=== PATIENT | male | born 1980 | race Caucasian/White ===

== ENCOUNTER → 2020-12-23 14:48 | Outpatient (BNVA) | payer OTHER, SELFPAY | PROVIDERS: PCP Nurse Practitioner Family; Visit Provider Internal Medicine ==

== ENCOUNTER → 2021-01-31 09:51 | Outpatient (REF) | payer OTHER, SELFPAY | LOC: HO.SL 09:51 | PROVIDERS: PCP Nurse Practitioner Family; Visit Provider Internal Medicine | DX: E66.9 Obesity, unspecified (principal); R06.83 Snoring; G47.33 Obstructive sleep apnea (adult) (pediatric) | CPT/HCPCS: 95806 ==

== ENCOUNTER → 2021-02-17 15:40 | Outpatient (BNVA) | payer OTHER, SELFPAY | PROVIDERS: PCP Nurse Practitioner Family; Visit Provider Internal Medicine ==

== ENCOUNTER 2022-05-30 08:27 | Outpatient (REF) | payer OTHER, SELFPAY ==
--- NOTE | ~2022-05-30 | US_ITS ---
EXAMINATION: US SCROTUM CLINICAL INFORMATION: Benign cyst of testis. COMPARISON: None available. TECHNIQUE: A sonogram of the scrotum was performed assessing england-scale appearance and color Doppler flow. Spectral Doppler analysis of the arterial and venous flow were performed in the testes bilaterally. FINDINGS: RIGHT: Right testicle measures 5.6 x 2.3 x 4.4 cm, volume 29.9 mL. There is anechoic cyst in the right epididymis midpole measuring 0.28 x 0.37 x 0.31 cm. No solid lesions or additional cyst seen. Spectral Doppler analysis of the arterial and venous flow is normal in the right testis. Right epididymal head is normal. There is lobulated anechoic cyst in the body of the right epididymis measuring 0.71 x 0.58 x 0.88 cm. There is a small right hydrocele. No right varicocele is seen. Right epididymal Doppler flow is normal. LEFT: Left testicle measures 5.7 x 2.4 x 3.7 cm, volume 26.6 mL. There is no cyst or solid lesion seen. Spectral Doppler analysis of the arterial and venous flow is normal in the left testis. Left epididymal head is normal except for a small anechoic cyst in the body measuring 1.4 x 1.3 x 1.7 cm and epididymal head cyst measuring 1.4 x 1.3 x 1.7 cm. No left hydrocele or varicocele is seen. Left epididymal Doppler flow is normal. There are bilateral prominent Rete testes. US/US scrotum IMPRESSION: Bilateral epididymal cysts. Right testicular cyst. Bilateral prominent Rete testes. The Doppler exam of testes and epididymides is normal.
== END 2022-05-30 08:28 | disposition home or self-care (01) ==
LOC: HO.HMGCX 08:27
PROVIDERS: PCP Nurse Practitioner Family; Visit Provider Nurse Practitioner Family
DX: N44.2 Benign cyst of testis (principal)
CPT/HCPCS: 76870

== ENCOUNTER 2022-07-05 09:56 | Outpatient (AMB) | payer OTHER, SELFPAY ==
--- NOTE | 2022-07-05 10:08 | A.OFFVIS_ITS ---
Intake Intake Visit Reasons: New patient vasectomy consult Intake Note: New Patient is present Vasectomy Consult Antibiotic Allergy: Penicillin Blood Thinner: None Current Children: 3 Not expecting Allergies penicillin V Allergy (Unknown, Verified 07/27/22 10:36) Unknown HPI HPI Comments History of Present Illness Details Herberth is a 42-year-old male who presents to the office as a new patient evaluation for vasectomy consult. 07/05/22-- The patient reported scrotal lesion that comes and goes to his PCP. The patient has a girl child. States that his is aware regarding the procedure. Vasectomy procedure was discussed at length with the patient. He was informed that vasectomy is a safe, permanent, and effective form of control but there are risks involved. It may involve risk of hematoma, procedure failure which is rare, sperm granuloma which may cause mild pain, and congestion which may cause sense of pressure and resolves after several weeks. The patient was advised that it is necessary to use other types of control methods like condom until we send semen for analysis to make sure there is no more sperm in the semen which is done after two and a half months post vasectomy. Patient would be given antibiotic therapy as an infection prophylaxis before the procedure. Consent regarding the vasectomy consult was obtained. Reviewed and Discussed U/S rescults: --Scrotal US results reviewed--05/30/22-- IMPRESSION: Bilateral epididymal cysts. Right testicular cyst. No testicular masses noted. Plan: Vasectomy procedure discussed to be scheduled. FORMERLY [facility], [facility] Medical History (Updated 07/27/22 @ 10:24 by Elizabeth Hyde RN) HTN (hypertension) IBS (irritable bowel syndrome) Obesity (BMI 30-39.9) SAHRA (obstructive sleep apnea) Snoring Surgical History (Updated 07/27/22 @ 10:35 by Elizabeth Hyde RN) Hx of colonoscopy No pertinent past surgical history Social History Housing: House Are you a primary adult day care worker to a significant other at home: No Patient Tobacco Use Status: Former Tobacco user Quit Date: 20 yrs ago Tobacco use type: Cigarette Years Smoked: 20 years ago e-Cigarette/Vaping Use: Never Used Second Hand Smoke Exposure: No Have you been hit, kicked, punched, or otherwise hurt by someone within the past year? If so, by whom?: No Are you DNR?: No Advance Directives: No Advance Directives Information Provided: No Advance Directives on File: No Recently lost weight without trying: No Eating poorly because of decreased appetite: No Nutrition Risks: No Nutritional Risk service: No Current occupational status: employed Current occupation: [employer] Current occupational exposures/hazards: No Cognitive needs: No Hearing needs: No Vision needs: Yes Review of Systems Const All systems reviewed & are unremarkable except as noted in HPI and below Reports no additional complaints Eyes Reports no additional complaints ENT Reports no additional complaints Card Denies dyspnea Resp Denies cough and Denies dyspnea GI Reports no additional complaints Musc Reports no additional complaints Skin/Breast Denies rash and Denies unusual bruising Neuro Reports no additional complaints Psych Reports no additional complaints Endo Reports no additional complaints Raul/Lymph Reports no additional complaints Aller/Immun Reports no additional complaints Physical Exam Const General: healthy appearing, no acute distress and well developed Orientation/consciousness: patient oriented x3 HEENT Head: Yes normocephalic and Yes atraumatic Eyes Conjunctivae: conjunctivae normal Neck Neck: Yes normal visual inspection Chest Chest palpation & inspection: normal inspection of the chest Resp Effort & Inspection: normal respiratory effort Cardio Rate: regular rate GI Inspection: Yes normal to inspection Skin General skin exam: no rashes or lesions noted Neuro General: patient oriented x3 Extrem General: No pedal edema Psych Appearance: grossly normal Affect: normal affect Results Reviewed Results Reviewed: Date of Service: 05/30/22 EXAMINATION: US SCROTUM CLINICAL INFORMATION: Benign cyst of testis. COMPARISON: None available. TECHNIQUE: A sonogram of the scrotum was performed assessing england-scale appearance and color Doppler flow. Spectral Doppler analysis of the arterial and venous flow were performed in the testes bilaterally. FINDINGS: RIGHT: Right testicle measures 5.6 x 2.3 x 4.4 cm, volume 29.9 mL. There is anechoic cyst in the right epididymis midpole measuring 0.28 x 0.37 x 0.31 cm. No solid lesions or additional cyst seen. Spectral Doppler analysis of the arterial and venous flow is normal in the right testis. Right epididymal head is normal. There is lobulated anechoic cyst in the body of the right epididymis measuring 0.71 x 0.58 x 0.88 cm. There is a small right hydrocele. No right varicocele is seen. Right epididymal Doppler flow is normal. LEFT: Left testicle measures 5.7 x 2.4 x 3.7 cm, volume 26.6 mL. There is no cyst or solid lesion seen. Spectral Doppler analysis of the arterial and venous flow is normal in the left testis. Left epididymal head is normal except for a small anechoic cyst in the body measuring 1.4 x 1.3 x 1.7 cm and epididymal head cyst measuring 1.4 x 1.3 x 1.7 cm. No left hydrocele or varicocele is seen. Left epididymal Doppler flow is normal. There are bilateral prominent Rete testes. IMPRESSION: Bilateral epididymal cysts. ? Right testicular cyst. ? Bilateral prominent Rete testes. ? The Doppler exam of testes and epididymides is normal. Assessment & Plan Assessment & Plan (1) Vasectomy evaluation: Code(s): Z30.09 - Encounter for other general counseling and advice on contraception (2) Testicular cyst: Code(s): N44.2 - Benign cyst of testis Plan Vasectomy procedure discussed to be scheduled. Patient Instructions: The patient had an opportunity to ask questions regarding treatment plan. All questions were answered. Imaging, Laboratory studies and physical exam results were discussed and reviewed in detail. No major barriers to understanding were identified. The patient expressed understanding and agreement with the above treatment plan. The patient is aware they should contact our office by phone for worsening of their current condition or the appearance of new symptoms. Compliance is encouraged with any medications and followup testing that is ordered. It is a privilege to be allowed the opportunity to participate in the urologic care of your patient. If you have any questions or concerns regarding treatment for the above conditions please do not hesitate to contact me. The office telephone contact is [phone]. This note is constructed in part using voice recognition software. While every effort has been made to ensure accuracy laboratory development technician errors may have been included. Yours sincerely, Griselda Benavides MD Coding Level of Care Code New Pt Level 4 (46937) Diagnoses Vasectomy evaluation Z30.09 Testicular cyst N44.2
== END 2022-07-05 10:36 | disposition home or self-care (01) ==
LOC: HO.HUSH 09:56
PROVIDERS: PCP Nurse Practitioner Family; Visit Provider Urology
DX: Z30.09 Encounter for other general counseling and advice on contraception (principal); N44.2 Benign cyst of testis
CPT/HCPCS: 99204

== ENCOUNTER → 2022-07-05 09:56 | Outpatient (BNVA) | payer OTHER, SELFPAY | PROVIDERS: PCP Nurse Practitioner Family; Visit Provider Urology ==

== ENCOUNTER 2024-05-01 08:49 | Outpatient (AMB) | payer OTHER, SELFPAY ==
[2024-05-01 08:53] VITALS: BP 128/78; PULSE 80; TEMP 36.6; O2SAT 98; BMI 30.7
--- NOTE | 2024-05-01 08:53 | A.OFFPC_ITS ---
Vital Signs 05/01/24 08:53 Height 5 ft 11 in Weight 220 lb BMI 30.7 BP 128/78 Blood Pressure Location Lt brachial Position Sitting Pulse 80 Pulse Source Pulse Oximeter Temp 97.8 F Temp Source Oral Pulse Oximetry (%) 98 Intake Visit Reasons: follow up hemorrhoids Lion Tamer Required: No Accompanied by: Self / Same As Patient Allergies penicillin V Allergy (Unknown, Verified 05/01/24 09:50) Unknown Medication List - Last Reconciled 05/01/24 by GLENNY Chavez- albuterol sulfate 90 mcg/actuation 2 puffs inhalation Q6H PRN 90 days hydrocortisone 2.5% (Anusol-HC) 1 appl SD BID-QID PRN ketoconazole 2% appl topical valsartan 320 mg PO DAILY 90 days Tobacco use date assessed: 05/01/24 Dental Screening Dental Screen Date: 05/01/24 Did you have a dental visit in the last 12 months?: Yes Did you have a dental problem in the last 6 months where you did not have access to dental care?: No Was dental information given to patient?: Patient has dentist HPI follow up hemorrhoids HPI Details Chief Complaint The patient reports noticing a bump near his anus a few weeks ago, without any associated bleeding. History of Present Illness The patient is a 43-year-old male presenting with concerns related to an external hemorrhoid. He noted an anal bump a few weeks ago, which was initially hard and tender but has since improved in tenderness. He denies associated bleeding or itching but reports intermittent diarrhea and a general tendency towards constipation. Regarding his family history, there is a significant prevalence of pancreatic carcinoma, as both his father and paternal aunt were affected, with his father passing at 59 following diagnosis at age 57. A previous referral to genetics and testing with CA-19-9 had been made, but further genetic consultation was not pursued by the patient, apparently did not get a call about this previous referral ? HTN: stable Social History Health Maintenance - Previous referral to genetics for fami ly history of pancreatic carcinoma noted. - CA-19-9 test previously ordered. Review of Systems - Gastrointestinal: Reports intermittent diarrhea and constipation; denies blood in stool or anal itching. - Respiratory: Denies shortness of breat h. - Neurological: Denies dizziness or head aches. - Cardiovascular: Denies chest pain. Physical Exam General: Cooperative, healthy appearing, comfortable, no acute distress and well developed Orientation: Patient oriented x3 Limitations: No limitations Head: Normal to inspection Ears: Hearing grossly normal bilaterally Nose: Normal external nose present Face and sinus: Normal facial exam Eyes: Appearance normal, both eyes and all related structures Neck: Normal visual inspection and Yes full ROM Respiratory: Normal respiratory effort and able to speak in complete sentences. Clear to auscultation bilaterally Cardiovascular: Regular rate and rhythm. Normal S1 and S2 GI: External hemorrhoid noted at the 5:00 position, appears to be healing well. Normal to inspection. Soft to palpation and nontender Skin: No rashes or lesions noted Neuro: Patient oriented x3 Extremities: Normal to inspection Results Plan I have recommended a topical cream for the management of the external hemorrhoid and instructed the patient to notify me if symptoms change or worsen. A CA-19-9 test will be conducted, and an MRI of the abdomen has been ordered to provide further investigation due to familial pancreatic cancer risk. The patient will be re-referred to genetics for a comprehensive evaluation, and follow-up care will be discussed based on forthcoming results. Discussion Notes During our discussion, I explained the diagnosis of an external hemorrhoid and the typical management approach with topical treatments for symptom relief and healing facilitation. I emphasized the importance of reporting any changes or concerns immediately. We reviewed his significant family history of pancreatic carcinoma, and I conveyed the necessity of completing genetic counseling and testing for better understanding of his risk. Consent was obtained for performing a CA-19-9 test and scheduling an MRI of the abdomen, with the potential benefits of early detection and routine monitoring highlighted. Follow-up and further discussions will occur depending on the outcomes of these investigations. Patient Instructions - Apply the prescribed cream as directed to the affected area. - Monitor the hemorrhoid for any changes or worsening. - Seek immediate care if experiencing in creased pain, bleeding, or discomfort. - Complete blood work and attend an MRI appointment as scheduled. - Expect referral details for genetic co unseling. FORMERLY [facility], [facility] Medical History Irritable bowel syndrome with diarrhea HTN (hypertension) IBS (irritable bowel syndrome) Snoring SAHRA (obstructive sleep apnea) Obesity (BMI 30-39.9) Surgical History Hx of colonoscopy No pertinent past surgical history Social History Housing: House Are you a primary home day care provider to a significant other at home: No Patient Tobacco Use Status: Former Tobacco user Tobacco use type: Cigarette Years Smoked: 20 years ago e-Cigarette/Vaping Use: Never Used Second Hand Smoke Exposure: No service: No Current occupational status: employed Current occupation: [employer] Current occupational exposures/hazards: No Cognitive needs: No Hearing needs: No Vision needs: Yes Questionnaire PHQ-9 Over the last 2 weeks, how often have you been bothered by any of the following problems? 1. Little interest or pleasure in doing things: not at all 2. Feeling down, depressed, or hopeless: not at all 3. Trouble falling or staying asleep, or sleeping too much: not at all 4. Feeling tired or having little energy: not at all 5. Poor appetite or overeating: not at all 6. Feeling bad about yourself - or that you are a failure or have let yourself or your family down: not at all 7. Trouble concentrating on things, such as reading the newspaper or watching television: not at all 8. Moving or speaking so slowly that other people could have noticed. Or the opposite - being so fidgety or restless that you have been moving around a lot more than usual: not at all 9. Thoughts that you would be better off or of hurting yourself in some way: not at all Total score: 0 Depression Screening Interpretation: Negative Depression Screening Done: Yes 45489 - PHQ-9 Billing: Yes Source: Developed by Drs. Desean Collins, Dacia Kaur, Mino Tsai and colleagues, with an educational tereso from [employer]. Thrive Questionnaire Date Thrive assessed: 05/01/24 I am a: Patient What is your living situation today?: I have a steady place to live Within the past 12 months, did the food you bought not last and you didn't have the money to get more?: Never true Within the past 12 months, did you worry whether your food would run out before you got money to buy more?: Never true Do you have trouble paying for medicines?: No Do you have trouble getting transportation to medical appointments?: No Do you have trouble paying your heating and electricity bill?: No Do you have trouble taking care of your child, family member or friend?: No Do you have trouble with day-to-day activities such as bathing, preparing meals, shopping, managing finances, etc.?: No Are you currently unemployed and looking for a job?: No Are you interested in more education?: No Please select the resources that you would like help with: None Currently or been in a relationship where the following occur: No concerns reported THRIVE Score: 0 AUDIT C Alcohol Use Questionnaire (AUDIT-C) 1. How often do you have a drink containing alcohol?: Never 3. How often do you have six or more drinks on one occasion?: Never Total Score: 0 Score Reviewed/Action Taken: Yes SOL-7 AMB Questionnaire SOL-7 Date SOL - 7 assessed: 05/01/24 Feeling nervous, anxious, or on edge: 0 = Not at all Not being able to stop or control worryin = Not at all Worrying too much about different things: 0 = Not at all Trouble relaxin = Not at all Being so restless that it is hard to sit still: 0 = Not at all Becoming easily annoyed or irritable: 0 = Not at all Feeling afraid as if something awful might happen: 0 = Not at all Total SOL-7 score (0-4 normal; 5-9 mild; 10-14 moderate; 15-21 severe): 0 Source: Developed by Drs. Desean Collins, Dacia Kaur, Mino Tsai and colleagues, with an educational tereso from [employer]. SOL-7 Assessment Billing SOL-7 Assessment Tool: SOL-7 Assessment 03654 Physical exam (Primary Care) Vital Signs: Last Vital Signs Temp 97.8 F 05/01/24 08:53 Pulse 80 05/01/24 08:53 BP 128/78 05/01/24 08:53 Pulse Ox 98 05/01/24 08:53 BMI result Body Mass Index 30.7 Tobacco/Smoking Status: Tobacco use Status Tobacco use date assessed 05/01/24 05/01/24 08:54 Patient Tobacco Use Status Former Tobacco user 05/01/24 08:54 Tobacco use type Cigarette 05/01/24 08:54 e-Cigarette/Vaping Use Never Used 05/01/24 08:54 PHQ-9: PHQ-9 Score PHQ-9: Total score 0 05/01/24 09:00 Depression Screening Interpretation: Negative Thrive Assessment: Date of Thrive Assessment Date Thrive assessed 05/01/24 05/01/24 08:55 Currently or been in a relationship where the following occur: No concerns reported Coding Level of Care Code Est Pt Level 3 (36293) Diagnoses Family history of pancreatic cancer Z80.0 HTN (hypertension) I10 External hemorrhoid K64.4 Additional Codes SOL-7 Assessment Billing - SOL-7 Assessment Tool: SOL-7 Assessment 48625 ([id number]) PHQ-9 - 22085 - PHQ-9 Billing: Yes ([id number]) Assessment & Plan Assessment & Plan (1) Family history of pancreatic cancer: Comment: father at age 59y, paternal aunt from Pancreatic cancer Code(s): Z80.0 - Family history of malignant neoplasm of digestive organs Category: Medical (2) HTN (hypertension): Code(s): I10 - Essential (primary) hypertension Category: Medical (3) External hemorrhoid: Code(s): K64.4 - Residual hemorrhoidal skin tags Category: Medical Plan . Orders: Orders MR abdomen wo/w con Today Z80.0 - Family history of malignant neoplasm of digestive organs Referrals Genetics Referral Z80.0 - Family history of malignant neoplasm of digestive organs Medications: New hydrocortisone 2.5% (Anusol-HC) 1 appl SD BID-QID PRN 30 grams 0RF hemorrhoids
--- OUTSIDE RECORDS SUMMARY | 2024-05-01 09:15 | XMS_ITS | Clinical Summary ---
Author Organization [address] Address [address] [place] [address] Phone Care Team Providers Care Sr. Manager Marketing Name Role Phone Jb Cooley NP Primary Care Provider Allergies Active Allergy Reactions Criticality Noted Date Comments Penicillin 02/07/2024 Medications valsartan (DIOVAN) 320 mg tablet 12/10/2023 Activ e Encounters Date Type Department Care Team Description 02/08/2024 2:00 PM EST Office Visit Gastroenterology - [address] [place] [id number] Ginette Dsouza MD Irritable bowel syndrome with diarrhea (Primary Dx) from Last 3 Months Surgical History Surgery Date Site/Laterality Comments COLONOSCOPY W/ BIOPSIES 03/20/2022 nl - nl bx FLEXIBLE SIGMOIDOSCOPY 05/11/2017 Dr. Davis- homero bx ESOPHAGOGASTRODUODENOSCOPY 05/11/2017 Dr. Davis -homero esophgaus and stomach bx Medical History Medical History Date Comments IBS (irritable bowel syndrome) GERD (gastroesophageal reflux disease) HTN (hypertension) Seasonal allergies Family History Medical History Relation Name Comments Colon polyps Father Relation Name Status Comments Father Social History Tobacco Use Types Packs/Day Years Used Date Smoking Tobacco: Never Smokeless Tobacco: Never Tobacco Cessation:Counseling Given: Not Answered Alcohol Use Standard Drinks/Week Comments Not Currently 0 (1 standard drink = 0.6 oz pur e alcohol) Sex and Gender Information Value Date Recorded Sex Assigned at Not on file Legal Sex Male 11:15 AM EDT Gender Identity Not on file Sexual Orientation Not on file Obstetrics History Last Filed Vital Signs Vital Sign Reading Time Taken Comments Blood Pressure - - Pulse - - Temperature - - Respiratory Rate - - Oxygen Saturation - - Inhaled Oxygen Concentration - - Weight 104 kg (230 lb) 02/08/2024 1:52 PM EST Height 180.3 cm (5' 11 ) 02/08/2024 1:52 PM EST Body Mass Index 32.08 02/08/2024 1:52 PM EST Plan of Treatment Health Maintenance Due Date Last Done Comments Hepatitis B Vaccines (1 of 3 - 19+ 3-dose series) 2000 COVID-19 Vaccine (2023- season) 2023 12/20/2020, 04/27/2020 Cholesterol Screening (Lipid Panel) 12/09/2023 Depression Screening 12/09/2023 HIV Screening 12/09/2023 Hepatitis C Screening 12/09/2023 Social Influencers of Health Screening 12/09/2023 DTaP,Tdap,and Td Vaccines (2 - Td or Tdap) 10/10/2030 10/10/2020 Influenza Vaccine Completed 01/29/2024, , 12/05/2021, Additional history exists HIB Vaccines Aged Out No longer eligi ble based on patient's age to complete this topic HPV Vaccines Aged Out No longer eligi ble based on patient's age to complete this topic Hepatitis A Vaccines Aged Out No long er eligible based on patient's age to complete this topic IPV Vaccines Aged Out No longer eligi ble based on patient's age to complete this topic MMR Vaccines Aged Out No longer eligi ble based on patient's age to complete this topic Meningococcal ACWY Vaccine Aged Out N o longer eligible based on patient's age to complete this topic Meningococcal B Vacine Aged Out No lo nger eligible based on patient's age to complete this topic Pneumococcal Vaccine: Pediatrics (0 to 5 Years) and At-Risk Patients (6 to 64 Years) Aged Out No longer eligible based on patient's age to complete this topic RSV Immunization Patients Under 20 months Aged Out No longer eligible based on patient's age to complete this topic Varicella Vaccines Aged Out No longer eligible based on patient's age to complete this topic Procedures Procedure Name Priority Date/Time Associated Diagnosis Comments COLONOSCOPY Routine 02/11/2024 1:48 PM EST from Last 3 Months Results * COLONOSCOPY (02/11/2024 1:48 PM EST) Anatomical Region Laterality Modality Endoscopy us Historical Provider MD CAN~PROCEDURE ORDERABLES F inal Result from Last 3 Months Insurance [facility] Care Teams Sr. Manager Marketing Relationship Specialty Start Date End Date Jb Cooley NP [address] [facility] PCP - General Family Medicine 01/25/24
== END 2024-05-01 10:05 | disposition home or self-care (01) ==
LOC: HO.HMCC 08:50
PROVIDERS: PCP Nurse Practitioner Family; Visit Provider Nurse Practitioner Family
DX: Z80.0 Family history of malignant neoplasm of digestive organs (principal); I10 Essential (primary) hypertension; K64.4 Residual hemorrhoidal skin tags

== ENCOUNTER 2024-05-01 08:49 | Outpatient (REF) | payer OTHER, SELFPAY ==
[2024-05-01 13:13] LABS: MANUAL DIFF FLAG NO
[2024-05-01 13:25] LABS: Basophils Percent Auto 0.4 % (0-2); Eosinophils Absolute Auto 0.1 X10*3/uL (0.0-0.4); Eosinophils Percent Auto 1.8 % (0-4); Hematocrit 45.8 % (42.0-52.0); Hemoglobin 16.4 g/dl (14.0-18.0); Imm Gran Abs Auto 0.02 X10*3/uL (0.00-0.03); Imm Gran Pct Auto 0.4 % (0.0-0.4); Lymphocytes Absolute Auto 1.6 X10*3/uL (1.2-4.9); Lymphocytes Percent Auto 27.3 % (20-40); Mean Corpuscular HGB Conc 35.8 g/dl (31.0-36.0); Mean Corpuscular Hemoglobin 32.1 pg (27.0-33.0); Mean Corpuscular Volume 89.6 fL (80.0-98.0); Mean Platelet Volume 9.3 fL (9.4-12.4); Monocytes Absolute Auto 0.6 X10*3/uL (0.1-1.2); Monocytes Percent Auto 9.9 % (2-11); Neutrophils Absolute Auto 3.4 x10*3/uL (2.0-8.3); Neutrophils Percent Auto 60.2 % (45-73); Platelet Count 232 X10*3/uL (160-400); Red Blood Count 5.11 X10*6/uL (4.60-5.80); Red Cell Distribution Width 11.9 % (11.0-16.0); White Blood Count 5.7 X10*3/uL (4.8-10.8)
[2024-05-01 13:53] LABS: Appearance Urine Clear; Color Urine Yellow; Glucose Urine UA Negative (Negative); Leukocyte Esterase Urine Negative (Negative); Nitrite Urine Negative (Negative); PH 8.5 (5.0-9.0); Urine Blood Negative (Negative); Urine Ketones Negative (Negative); Urine Protein Negative (Neg-Trace)
[2024-05-01 14:06] LABS: Alanine Aminotransferase 74 U/L (0-40); Albumin Level 4.5 g/dL (3.5-5.0); Alkaline Phosphatase 73 U/L (39-117); Anion Gap 12 (12-20); Aspartate Amino Transferase 36 U/L (5-37); Blood Urea Nitrogen 27 mg/dL (9-16); Calcium 9.7 mg/dL (8.4-10.2); Carbon Dioxide 26 mmol/L (22-29); Chloride 104 mmol/L (96-108); Cholesterol 243 mg/dL (<200); Estimated Glomerular Filt Rate > 60; Glucose Fasting 97 mg/dL (60-99); HDL Cholesterol 44 mg/dL (>40); LDL Cholesterol Calculated 173 mg/dL (<100); Potassium 4.9 mmol/L (3.3-5.1); Sodium 137 mmol/L (135-145); Total Protein 8.1 g/dL (6.5-8.0); Triglycerides 134 mg/dL (<150)
[2024-05-01 14:09] LABS: TSH reflex Free T4 0.88 uIU/mL (0.32-4.0)
[2024-05-02 11:58] LABS: Carbohydrate Antigen 19-9 6 U/mL (<34)
== END 2024-05-01 08:50 | disposition home or self-care (01) ==
LOC: HO.HMGCLDS 08:49
PROVIDERS: PCP Nurse Practitioner Family; Visit Provider Nurse Practitioner Family
DX: I10 Essential (primary) hypertension (principal); K64.4 Residual hemorrhoidal skin tags; Z80.0 Family history of malignant neoplasm of digestive organs; Z00.00 Encounter for general adult medical examination without abnormal findings; R74.8 Abnormal levels of other serum enzymes
CPT/HCPCS: 36415; 80053; 80061; 81003; 84443; 85025; 86301; 96127

== ENCOUNTER 2024-05-14 13:21 | Outpatient (REF) | payer OTHER, SELFPAY ==
--- NOTE | ~2024-05-14 | MR_ITS ---
EXAMINATION: MRI Abdomen without and with contrast HISTORY: Z80.0 - Family history of malignant neoplasm of digestive organs (pancreas) COMPARISON: None TECHNIQUE: Axial in and out of phase T1-weighted gradient echo, axial diffusion weighted, and axial and coronal HASTE T2 with fat saturation images were obtained through the abdomen. Subsequently, fat suppressed axial and coronal T1-weighted images were obtained after the intravenous administration of 10 mL Gadavist. FINDINGS: There is no significant signal loss within the liver on opposed phase images to suggest steatosis. There is no enhancing liver mass. The hepatic and portal veins are patent. There is no intra or extrahepatic biliary ductal dilatation. The gallbladder is unremarkable. The spleen and adrenals are unremarkable. There is normal enhancement of the pancreas. No mass is identified. The pancreatic duct is normal in caliber. There are no peripancreatic inflammatory changes. There is a subcentimeter cyst at the lower pole of the right kidney. The left kidney is unremarkable. There is no hydronephrosis. No retroperitoneal lymphadenopathy or ascites is identified in the upper abdomen. The visualized bones demonstrate normal marrow signal intensity. MR/MR abdomen wo/w con IMPRESSION: Subcentimeter right renal cyst. Otherwise unremarkable MRI of the abdomen without and with contrast. No evidence of a pancreatic mass. Electronically signed by: Desean Prado MD 05/15/2024 07:50 AM EDT
[2024-05-14] MEDS: gadobutroL 10 ML VIAL IVPUSH (14:55)
--- OUTSIDE RECORDS SUMMARY | 2024-05-14 15:58 | XMS_ITS | Clinical Summary ---
Author Organization [facility] [address] [facility] Address [address] [place] [address] Phone Care Team Providers Care Traffic Supervisor Name Role Phone Jb Cooley NP Primary Care Provider Allergies Active Allergy Reactions Criticality Noted Date Comments Penicillin 02/07/2024 Medications valsartan (DIOVAN) 320 mg tablet 12/10/2023 Activ e Surgical History Surgery Date Site/Laterality Comments COLONOSCOPY [...] - 19+ 3-dose series) 2000 COVID-19 Vaccine (3 2023-25 season) 2023 12/20/2020, 04/27/2020 Cholesterol Screening (Lipid [...] on patient's age to complete this topic Insurance [facility] Care Teams Traffic Supervisor Relationship Specialty Start Date End Date Jb Cooley NP [address] [facility] DONNA Simons PCP - General Family Medicine 01/25/24
== END 2024-05-14 13:22 | disposition home or self-care (01) ==
LOC: HO.MRI 13:21
PROVIDERS: PCP Nurse Practitioner Family; Visit Provider Nurse Practitioner Family
DX: Z13.6 Encounter for screening for cardiovascular disorders (principal); Z80.0 Family history of malignant neoplasm of digestive organs
CPT/HCPCS: 74183; A9585

== ENCOUNTER → 2024-05-14 13:31 | Outpatient (BNV) | payer OTHER, SELFPAY | PROVIDERS: PCP Nurse Practitioner Family; Visit Provider Radiology Diagnostic Radiology | DX: N28.1 Cyst of kidney, acquired (principal) | CPT/HCPCS: 74183 ==

== ENCOUNTER 2024-08-28 08:40 | Outpatient (REF) | payer OTHER, SELFPAY ==
--- NOTE | ~2024-08-28 | US_ITS ---
CLINICAL HISTORY: ELEVATED LIVER ENZYMES US abdomen complete Comparison: MR/WA/SR - MR ABDOMEN WITHOUT THEN WITH IV CONTRAST - 05/14/24 13:29 EDT Findings: The pancreas is normal. The visualized aorta and inferior vena cava are normal caliber. The liver is normal in size, right lobe length is 16.5 cm. Normal in echogenicity, no discrete lesion is visualized in the imaged liver. No intrahepatic bile duct dilatation. The common duct is 3 mm in diameter. Multiple punctate echogenic foci floating in the gallbladder toward the neck, gallbladder is otherwise normal, negative sonographic Martinez's sign. The main portal vein is patent with antegrade flow. The right kidney is normal, 11.6 cm in length. The left kidney is normal, 12.0 cm in length. The spleen is mildly enlarged, 13.4 cm in length, no splenic lesion is seen. No free fluid in the abdomen. Impression: 1. Punctate echogenic foci floating in the gallbladder, likely small amount of sludge or thick bile, no acute inflammation. 2. Mild splenomegaly. This document has been electronically signed by: Katja Bridges MD on 08/28/2024 17:16:40
--- OUTSIDE RECORDS SUMMARY | 2024-08-28 08:48 | XMS_ITS | Clinical Summary ---
Author Organization [address] [place] Address [address] [place] [phone] Phone Care Team Providers Care Cloak Room Attendant Name Role Phone Jb Cooley NP Primary Care Provider Allergies Active Allergy Reactions Criticality Noted Date Comments Penicillin 02/07/2024 Medications valsartan (DIOVAN) 320 mg tablet 12/10/2023 Active albuterol HFA (PROAIR HFA ; PROVENTIL HFA ; VENTOLIN HFA) 90 mcg/actuation inhaler Inhale 2 puffs by mouth Every 4 hours as needed. Active omeprazole (PriLOSEC) [address] capsuleIndicati ons:Globus sensation Take 1 capsule (20 mg total) by mouth 2 (two) times a day. Do not crush or chew. 180 each 1 08/14/2024 Active Encounters Date Type Department Care Team Description 08/14/2024 3:00 PM EDT Office Visit Gastroenterology - [address] [place] [phone] Octavio Massey PA Globus sensation (Primary Dx) from Last 3 Months Immunizations Name Administration Dates Next Due Influenza Quadravalent, MDCK , 0.5ml, preservative free (Flucelvax) 6mo and older 02/16/2023 Influenza Quadrivalent, 0.5m l, preservative free (Fluarix; FluLaval; Fluzone) ages 6mo and older (Afluria) 3yo and older 12/05/2021,10/10/2020,11/27/2019 Influenza Quadrivalent, with preservative (Fluzone; Afluria) 6mo and older 11/12/2017,01/12/2017 Influenza trivalent, MDCK, 0 .5mL, preservative free (Flucelvax) 6mo and older 01/29/2024 Tdap Tetanus diptheria acell ular pertussis (Boostrix; Adacel) 7yo and older 10/10/2020 Surgical History Surgery Date Site/Laterality Comments COLONOSCOPY [...] - Inhaled Oxygen Concentration - - Weight 98.4 kg (217 lb) 08/14/2024 2:59 PM EDT Height 180.3 cm (5' 11 ) 08/14/2024 2:59 PM EDT Body Mass Index 30.27 08/14/2024 2:59 PM EDT Plan of Treatment Upcoming Encounters Date Type Department Care Team (Late st Contact Info) Description 09/30/2024 10:00 AM EDT Appointment [facility] Xray [address] [place] [phone] Health Maintenance Due Date Last Done Comments Hepatitis B Vaccines (1 of 3 - 19+ 3-dose series) 2000 COVID-19 Vaccine ( season) 2023 12/20/2020, 04/27/2020, 04/05/2020 Cholesterol Screening (Lipid Panel) 12/09/2023 Depression Screening 12/09/2023 HIV Screening 12/09/2023 Hepatitis C Screening 12/09/2023 Social Influencers of Health Screening 12/09/2023 Influenza Vaccine (#1) 2024 4, 02/16/2023, 12/05/2021, Additional history exists DTaP,Tdap,and Td Vaccines (2 - Td or Tdap) 10/10/2030 10/10/2020 HIB Vaccines Aged Out No longer eligi [...] age to complete this topic Meningococcal B Vaccine Aged Out No l onger eligible based on patient's age to complete this topic Pneumococcal Vaccine: Pediatrics (0 to 5 Years) and At-Risk Patients (6 to 49 Years) Aged Out No longer eligible based on patient's age to complete this topic RSV Immunization Patients Under 20 months Aged Out No longer eligible based on patient's age to complete this topic Varicella Vaccines Aged Out No longer eligible based on patient's age to complete this topic Insurance [facility] Care Teams Cloak Room Attendant Relationship Specialty Start Date End Date Jb Cooley NP [address] [facility] Kristyn [place] PCP - General Family Medicine 01/25/24
== END 2024-08-28 08:41 | disposition home or self-care (01) ==
LOC: HO.HMGCX 08:40
PROVIDERS: PCP Nurse Practitioner Family; Visit Provider Nurse Practitioner Family
DX: R74.8 Abnormal levels of other serum enzymes (principal)
CPT/HCPCS: 76700

== ENCOUNTER → 2024-08-28 08:45 | Outpatient (BNV) | payer OTHER, SELFPAY | PROVIDERS: PCP Nurse Practitioner Family; Visit Provider Radiology Diagnostic Radiology | DX: R74.01 Elevation of levels of liver transaminase levels (principal) | CPT/HCPCS: 76700 ==

== ENCOUNTER 2024-12-09 10:19 | Outpatient (REF) | payer OTHER, SELFPAY ==
--- NOTE | ~2024-12-09 | US_ITS ---
CLINICAL HISTORY: R16.1 - Splenomegaly, not elsewhere classified hx of fam panc ca US abdomen complete Comparison: US - US ABDOMEN COMPLETE - 08/28/24 08:53 EDT Findings: The visualized pancreas is normal, the uncinate process and distal tail are not seen. The visualized aorta and inferior vena cava are normal caliber. The liver is mildly enlarged, right lobe length is 18.4 cm. Normal in echogenicity, no discrete lesion is visualized in the imaged liver. No intrahepatic bile duct dilatation. The common duct is 2 mm in diameter. 2 mm and 3 mm gallbladder polyps, not seen before, otherwise gallbladder is normal. Negative sonographic Martinez sign. The main portal vein is patent with antegrade flow. The right kidney demonstrates 7 mm simple cyst at the interpolar region, not seen before, otherwise normal, 11.5 cm in length. The left kidney is normal, 12.0 cm in length. The spleen is mildly enlarged, 13.2 cm in length, previously 13.4 cm, no splenic lesion is seen. No free fluid in the abdomen. Impression: 1. Mild hepatosplenomegaly. 2. 2-3 mm gallbladder polyps. This document has been electronically signed by: Katja Bridges MD on 12/09/2024 16:54:31
--- OUTSIDE RECORDS SUMMARY | 2024-12-09 12:38 | XMS_ITS | Clinical Summary ---
Author Organization [facility] [address] [facility] Address [address] [place] [address] Phone Care Team Providers Care Casting Machine Operator Name Role Phone Jb Cooley NP Primary Care Provider Allergies Active Allergy Reactions Criticality Noted Date Comments Penicillin 02/07/2024 Medications valsartan (DIOVAN) 320 mg tablet 12/10/2023 Active albuterol HFA (PROAIR HFA ; PROVENTIL HFA ; VENTOLIN HFA) 90 mcg/actuation inhaler Inhale 2 puffs by mouth Every 4 hours as needed. Active omeprazole (PriLOSEC) [address] capsuleIndicatio ns:Globus sensation Take 1 capsule (20 mg total) by mouth 2 (two) times a day. Do not crush or chew. 180 each 1 08/14/2024 02/11/20 25 Active omeprazole (PriLOSEC) [address] capsuleIndicatio ns:Globus sensation,Gastro esophageal reflux disease without esophagitis Take 1 capsule (40 mg total) by mouth 2 (two) times a day. Do not crush or chew. 180 each 3 10/10/2024 10/11/19 26 Active Encounters Date Type Department Care Team Description 11/19/2024 Telephone Gastroenterology - [address] [phone] Ginette Dsouza MD 10/08/2024 Telephone Gastroenterology - [address] [phone] Shaye Cochran MA 09/30/2024 9:31 AM EDT - 09/30/2024 11:59 PM EDT Hospital Encounter [facility] Xray [address] [place] [address] Globus sensation Discharge Disposition: Home or Self Care from Last 3 Months Immunizations Immunization Administration Dates Next Due Influenza Quadravalent, MDCK [...] 08/14/2024 2:59 PM EDT Plan of Treatment Health Maintenance Due Date Last Done Comments Hepatitis B Vaccines (1 of 3 - 19+ 3-dose series) 2000 HPV Vaccines (1 - 3-dose SCDM series) 2008 Cholesterol Screening (Lipid Panel) 12/09/2023 HIV Screening 12/09/2023 Hepatitis C Screening 12/09/2023 Social Influencers of Health Screening 12/09/2023 Depression Screening 02/13/2024 COVID-19 Vaccine ( season) 2024 12/20/2020, 04/27/2020, 04/05/2020 Influenza Vaccine (#1) 2024 , 02/16/2023, 12/05/2021, Additional history exists DTaP,Tdap,and Td Vaccines (2 - Td or Tdap) 10/10/2030 10/10/2020 RSV Immunization Adult Patients (1 - 1-dose 75+ series) 2056 HIB Vaccines Aged Out No longer eligi [...] Procedure Name Priority Date/Time Associated Diagnosis Comments XR ESOPHAGRAM Routine 09/30/2024 10:13 AM EDT Globus sensation from Last 3 Months Results * XR Esophagram (09/30/2024 10:13 AM EDT) Anatomical Region Laterality Modality Head and Neck Radiographic Cathryn ging 09/30/2024 10:5 1 AM EDT Impressions 09/30/2024 12:31 PM EDT Normal double contrast esophagram exam. -------- FINAL REPORT -------- Dictated By: Marcia Veronica Dictated Date: 09/30/2024 10:51 ET Assigned Physician: Hay Lynch Reviewed and Electronically Signed By: Hay Lynch Signed Date: 09/30/2024 12:31 ET Workstation ID: [id number] Transcribed By: Self Edit Transcribed Date: 09/30/2024 10:53 ET Resident/PA/LABORER/GRADE CHECK: Marcia Veronica Narrative 09/30/2024 12:31 PM EDT FINDINGS: Double contrast esophagram performed. 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 Lungs are clear bilaterally. Costophrenic angles are sharp. 1 view lateral soft tissue neck demonstrates no prevertebral soft tissue masses. Airway is widely patent. Osseous structures are overall unremarkable. Effervescent crystals were administered orally. Thick and thin barium were administered orally under fluoroscopic control. Pharyngoesophagram: Rapid sequence imaging of the hypopharynx during swallowing demonstrates prompt initiation of swallowing. There is normal soft palate elevation and normal epiglottic motion. There is no laryngeal penetration or hailey aspiration. There is no residual in the vallecula nor in the piriform sinuses. Thoracic esophagus: Normal distensibility, motility and mucosal pattern without evidence of ulceration, stricture or mass formation. Hiatal hernia: None Reflux: Unable to elicit 13 mm Barium pill: Swallowed without difficulty. Prompt passage of pill from the esophagus into the stomach. DAP: 679.5 uGym^2 Procedure Note Hay Lynch MD - 09/30/2024 FINDINGS: Double contrast esophagram performed. 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 Lungs are clear bilaterally. Costophrenicangles are sharp. 1 view lateral soft tissue neck demonstrates noprevertebral soft tissue masses. Airway is widely patent. Osseousstructures are overall unremarkable. Effervescent crystals were administered orally. Thick and thin barium wereadministered orally under fluoroscopic control. Pharyngoesophagram: Rapid sequence imaging of the hypopharynx duringswallowing demonstrates prompt initiation of swallowing. There is normalsoft palate elevation and normal epiglottic motion. There is no laryngealpenetration or hailey aspiration. There is no residual in the vallecula norin the piriform sinuses. Thoracic esophagus: Normal distensibility, motility and mucosal patternwithout evidence of ulceration, stricture or mass formation. Hiatal hernia: None Reflux: Unable to elicit 13 mm Barium pill: Swallowed without difficulty. Prompt passage of pillfrom the esophagus into the stomach. DAP: 679.5 uGym^2 IMPRESSION: Normal double contrast esophagram exam. -------- FINAL REPORT -------- Dictated By: Marcia Veronica Dictated Date: 09/30/2024 10:51 ET Assigned Physician: Hay Lynch Reviewed and Electronically Signed By: Hay Lynch Signed Date: 09/30/2024 12:31 ET Workstation ID: [id number] Transcribed By: Self Edit Transcribed Date: 09/30/2024 10:53 ET Resident/PA/LABORER/GRADE CHECK: Marcia Veronica Octavio PETE IMG FLUOROSCOPY PROCEDURES F inal Result from Last 3 Months Insurance [facility] Care Teams Casting Machine Operator Relationship Specialty Start Date End Date Jb Cooley NP [address] [facility] DONNA Simons PCP - General Family Medicine 01/25/24
== END 2024-12-09 10:20 | disposition home or self-care (01) ==
LOC: HO.HMGCX 10:19
PROVIDERS: PCP Nurse Practitioner Family; Visit Provider Nurse Practitioner Family
DX: R16.1 Splenomegaly, not elsewhere classified (principal)
CPT/HCPCS: 76700

== ENCOUNTER → 2024-12-09 10:31 | Outpatient (BNV) | payer OTHER, SELFPAY | PROVIDERS: PCP Nurse Practitioner Family; Visit Provider Radiology Diagnostic Radiology | DX: R16.1 Splenomegaly, not elsewhere classified (principal); Z80.0 Family history of malignant neoplasm of digestive organs | CPT/HCPCS: 76700 ==

== ENCOUNTER 2025-01-12 09:33 | Outpatient (REF) | payer OTHER, SELFPAY ==
[2025-01-12 09:52] LABS: MANUAL DIFF FLAG NO
[2025-01-12 10:32] LABS: Appearance Urine Clear; Glucose Urine UA Negative (Negative); PH 7.0 (5.0-9.0); Specific Gravity - Urine <= 1.005 (1.005-1.025)
[2025-01-12 10:39] LABS: Hematocrit 44.7 % (42.0-52.0); Hemoglobin 15.8 g/dl (14.0-18.0); Imm Gran Abs Auto 0.01 X10*3/uL (0.00-0.03); Imm Gran Pct Auto 0.2 % (0.0-0.4); Lymphocytes Absolute Auto 1.5 X10*3/uL (1.2-4.9); Mean Corpuscular HGB Conc 35.3 g/dl (31.0-36.0); Mean Corpuscular Hemoglobin 32.2 pg (27.0-33.0); Mean Corpuscular Volume 91.2 fL (80.0-98.0); NRBC Abs Auto 0.000 X10*3/uL (0.0-0.012); NRBC Pct Auto 0.0 /100WBC (0.0-0.2); Platelet Count 199 X10*3/uL (160-400); Red Blood Count 4.90 X10*6/uL (4.60-5.80); White Blood Count 4.7 X10*3/uL (4.8-10.8)
[2025-01-12 11:18] LABS: Alanine Aminotransferase 32 U/L (0-40); Albumin Level 4.8 g/dL (3.5-5.0); Alkaline Phosphatase 82 U/L (39-117); Anion Gap 11 (12-20); Aspartate Amino Transferase 26 U/L (5-37); Blood Urea Nitrogen 15 mg/dL (9-16); Calcium 9.4 mg/dL (8.4-10.2); Carbon Dioxide 27 mmol/L (22-29); Chloride 105 mmol/L (96-108); Cholesterol 232 mg/dL (<200); Estimated Glomerular Filt Rate > 60; HDL Cholesterol 44 mg/dL (>40); Potassium 4.2 mmol/L (3.3-5.1); Sodium 139 mmol/L (135-145); Total Protein 7.3 g/dL (6.5-8.0); Triglycerides 121 mg/dL (<150)
--- OUTSIDE RECORDS SUMMARY | 2025-01-12 11:19 | XMS_ITS | Clinical Summary ---
Author Organization [address] [place] Address [address] [place] [phone] Phone Care Team Providers Care Wharf Labourer Name Role Phone Jb Cooley NP Primary [...] Care Team Description 11/19/2024 Telephone Gastroenterology - [address] [place] [phone] Ginette Dsouza MD from Last 3 Months Immunizations Immunization Administration [...] patient's age to complete this topic Insurance [facility] Member Subscriber Plan / Payer (Ef fective 2023-Present) Name:HERBERTH ROME Relation to Subscriber:Self Name:BilliezakiaHerberth dunaway Payer ID:[id number] (NAIC) Type:Not on file Address: [facility] [address] [place] [phone] Care Teams Wharf Labourer Relationship Specialty Start Date End Date Jb Cooley NP [address] [facility] DONNA Simons PCP - General Family Medicine 01/25/24
[2025-01-12 11:26] LABS: HBS Num1 93.12 mIU/mL (0-7.99); HBc Num1 0.07 S/CO (0.00-0.79); HBsAGNum1 0.39 S/CO (0.00-0.99); Hepatitis A Antibody IgM 0.18 Index (0-0.79); Hepatitis B Surface Antigen Negative (Negative); ~HepC Num1 0.10 S/CO (0.00-0.79); ~Hepatitis A Antibody IgM Nonreactive (Nonreactive); ~Hepatitis B Surface Antibody REACTIVE (Nonreactive); ~Hepatitis C Antibody Nonreactive (Nonreactive)
[2025-01-17 16:18] LABS: Testosterone, Free 75.5 pg/mL (35.0-155.0)
== END 2025-01-12 09:34 | disposition home or self-care (01) ==
LOC: HO.LAB 09:33
PROVIDERS: PCP Nurse Practitioner Family; Visit Provider Nurse Practitioner Family
DX: R74.8 Abnormal levels of other serum enzymes (principal); E78.5 Hyperlipidemia, unspecified; R53.83 Other fatigue
CPT/HCPCS: 36415; 80053; 80061; 81003; 84402; 84403; 84443; 85025; 86704; 86706; 86709; 86803; 87340

== ENCOUNTER 2025-01-14 08:16 | Outpatient (REF) | payer OTHER, SELFPAY | END 2025-01-14 08:17 | disposition home or self-care (01) | LOC: HO.HMGCLDS 08:16 | PROVIDERS: PCP Nurse Practitioner Family; Visit Provider Nurse Practitioner Family | DX: Z12.5 Encounter for screening for malignant neoplasm of prostate (principal); Z00.00 Encounter for general adult medical examination without abnormal findings; Z00.01 Encounter for general adult medical examination with abnormal findings; E78.5 Hyperlipidemia, unspecified; R74.8 Abnormal levels of other serum enzymes; R16.2 Hepatomegaly with splenomegaly, not elsewhere classified; K82.4 Cholesterolosis of gallbladder; Z80.0 Family history of malignant neoplasm of digestive organs; Z79.899 Other long term (current) drug therapy | CPT/HCPCS: 36415; 84153; 86015; 86301; 86381 ==

== ENCOUNTER 2025-01-14 08:16 | Outpatient (AMB) | payer OTHER, SELFPAY ==
[2025-01-14 08:19] VITALS: BP 120/80; PULSE 83; O2SAT 98; BMI 30.7
--- NOTE | 2025-01-14 08:19 | A.OFFPC_ITS ---
Vital Signs 01/14/25 08:19 Height 5 ft 11 in Weight 220 lb BMI 30.7 BP 120/80 Blood Pressure Location Lt brachial Position Sitting Pulse 83 Pulse Source Pulse Oximeter Pulse Oximetry (%) 98 Intake Visit Reasons: PE Allergies penicillin V Allergy (Unknown, Verified 01/14/25 08:20) Unknown Medication List - Last Reconciled 01/14/25 by Jb Cooley, SENIOR OFFICER-BC albuterol sulfate 90 mcg/actuation 2 puffs inhalation Q6H PRN 90 days hydrocortisone 2.5% (Anusol-HC) 1 appl OK BID-QID PRN ketoconazole 2% appl topical valsartan 320 mg PO DAILY Tobacco use date assessed: 05/01/24 Dental Screening Dental Screen Date: 05/01/24 HPI PE HPI Details History of Present Illness The patient is a 44 year old individual presenting for a physical exam. The patient has dyslipidemia, noted on recent labs, and has tried diet modifications in the past. A statin was previously prescribed but has not yet been started. The patient has a significant family history of pancreatic carcinoma; the patient's father was diagnosed and in his 50s, two paternal aunts in their 60s, and a great-uncle also from the disease. There is also a family history of a member (great uncle) passing away from biliary carcinoma. An MRI of the patient's abdomen in May was negative for carcinoma. Previous referrals to genetics did not proceed as the patient reported not qualifying. The patient is fairly active in the gym and is otherwise doing well. Health Maintenance - Surveillance for pancreatic carcinoma due to a significant family history. - An abdominal MRI performed in May wa s negative and is planned to be repeated this coming May. - A referral will be sent to [facility] for genetics evaluation. - Screening labs will be obtained for pa ncreatic and biliary conditions, including an anti-mitochondrial antibody test. Social History - The patient is fairly active and goes to the gym. Review of Systems - Cardiovascular: Denies chest pain or s hortness of breath. - Gastrointestinal: Denies abdominal romelia n, constipation, or diarrhea. - Psychiatric: Denies suicidal or homici marine ideation. -denies any fevers or chills Physical Exam General: Cooperative, healthy appearing, comfortable, no acute distress and well developed Orientation: Patient oriented x3 Limitations: No limitations Head: Normal to inspection Ears: Hearing grossly normal bilaterally Nose: Normal external nose present Face and sinus: Normal facial exam Eyes: Appearance normal, both eyes and all related structures Neck: Normal visual inspection and Yes full ROM Respiratory: Normal respiratory effort and able to speak in complete sentences. Clear to auscultation bilaterally Cardiovascular: Regular rate and rhythm. Normal S1 and S2 GI: Normal to inspection. Soft to palpation and nontender : Testicles without masses/lesions and no hernias appreciated Skin: No rashes or lesions noted Neuro: Patient oriented x3 Extremities: Normal to inspection Results - Labs: Recent labs revealed dyslipidemi a. - Imaging: An MRI of the abdomen in was negative for any signs of carcinoma. Plan 1. Dyslipidemia As the patient has not started the previously prescribed statin, a more natural approach with [place] bergamot 1,000 mg daily will be initiated. Follow-up labs, including cholesterol and fasting blood sugar, will be repeated in 2 months to assess efficacy. 2. Surveillance For Malignant Neoplasm O f Pancreas Given the significant family history of pancreatic carcinoma, surveillance will continue. An abdominal MRI will be repeated this coming May. [place] [facility] and [place]. Additional labs related to pancreatic carcinoma will be ordered. 3. Family History Of Biliary Tract Cance r Due to a family history of a relative passing away from biliary carcinoma, an an ti-mitochondrial antibody test will be ordered to screen for primary biliary cirrhosis. Discussion Notes I discussed the patient's dyslipidemia, and we agreed to try a natural approach with [place] bergamot first, as the patient has not started the previously prescribed statin. I explained we will monitor progress with repeat cholesterol and fasting blood sugar labs in 2 months. I emphasized that the biggest concern is the significant family history of pancreatic carcinoma, and I stressed the importance of surveillance. I informed the patient that I will refer [place] [facility] [place]. I also explained that we will repeat the abdominal MRI in the upcoming May and order additional labs, including an anti-mitochondrial antibody test, due to the family history of both pancreatic and biliary carcinomas. Patient Instructions - Take 1,000 mg of [place] bergamot daily to help manage your cholesterol. - In 2 months, you will need to get bloo dwork done to check your cholesterol and fasting blood sugar levels. - We will schedule another MRI of your a bdomen to be done this coming May for cancer screening. - Our office will send a referral for yo u to see a genetics specialist at [facility] [place] further evaluation regarding your family history of cancer. - Please get the blood test for anti-breezy ochondrial antibody as ordered. [facility] Medical History Irritable bowel syndrome with diarrhea HTN (hypertension) IBS (irritable bowel syndrome) Snoring SAHRA (obstructive sleep apnea) Obesity (BMI 30-39.9) Surgical History Hx of colonoscopy No pertinent past surgical history Social History Housing: House Are you a primary lawn caretaker to a significant other at home: No Patient Tobacco Use Status: Former Tobacco user Tobacco use type: Cigarette Years Smoked: 20 years ago e-Cigarette/Vaping Use: Never Used Second Hand Smoke Exposure: No service: No Current occupational status: employed Current occupation: [employer] Current occupational exposures/hazards: No Cognitive needs: No Hearing needs: No Vision needs: Yes Questionnaire Thrive Questionnaire Date Thrive assessed: 04/24/24 I am a: Patient What is your living situation today?: I have a steady place to live Within the past 12 months, did the food you bought not last and you didn't have the money to get more?: Never true Within the past 12 months, did you worry whether your food would run out before you got money to buy more?: Never true Do you have trouble paying for medicines?: No Do you have trouble getting transportation to medical appointments?: No Do you have trouble paying your heating and electricity bill?: No Do you have trouble taking care of your child, family member or friend?: No Do you have trouble with day-to-day activities such as bathing, preparing meals, shopping, managing finances, etc.?: No Are you currently unemployed and looking for a job?: No Are you interested in more education?: No Please select the resources that you would like help with: None Currently or been in a relationship where the following occur: No concerns reported THRIVE Score: 0 AUDIT C Alcohol Use Questionnaire (AUDIT-C) 3. How often do you have six or more drinks on one occasion?: Never Total Score: 0 SOL-7 AMB Questionnaire SOL-7 Date SOL - 7 assessed: 05/01/24 Source: Developed by Drs. Desean Collins, Dacia Kaur, Mino Tsai and colleagues, with an educational tereso from [employer]. Physical exam (Primary Care) Vital Signs: Last Vital Signs Pulse 83 01/14/25 08:19 BP 120/80 01/14/25 08:19 Pulse Ox 98 01/14/25 08:19 BMI result Body Mass Index 30.7 Tobacco/Smoking Status: Tobacco use Status Tobacco use date assessed 05/01/24 12 08:25 Patient Tobacco Use Status Former Tobacco user 01/14/25 08:25 Tobacco use type Cigarette 01/14/25 08:25 e-Cigarette/Vaping Use Never Used 01/14/25 08:25 Thrive Assessment: Date of Thrive Assessment Date Thrive assessed 04/24/24 01/14/25 08:25 Currently or been in a relationship where the following occur: No concerns reported Coding Level of Care Code Est Pt Level 3 (51953) Est Pt Prev Care 40-64y(59504) Diagnoses Dyslipidemia E78.5 Physical exam Z00.00 Family history of pancreatic cancer Z80.0 Elevated liver enzymes R74.8 Hepatosplenomegaly R16.2 Polyp of gallbladder K82.4 Screening for prostate cancer Z12.5 Encounter for routine adult physical exam with abnormal findings Z00.01 Assessment & Plan Assessment & Plan (1) Dyslipidemia: Code(s): E78.5 - Hyperlipidemia, unspecified Category: Medical (2) Physical exam: Code(s): Z00.00 - Encounter for general adult medical examination without abnormal findings Category: Medical (3) Family history of pancreatic cancer: Comment: father at age 59y, 2 aunts from [place] age 64 Code(s): Z80.0 - Family history of malignant neoplasm of digestive organs Category: Medical (4) Elevated liver enzymes: Code(s): R74.8 - Abnormal levels of other serum enzymes Category: Medical (5) Hepatosplenomegaly: Code(s): R16.2 - Hepatomegaly with splenomegaly, not elsewhere classified Category: Medical (6) Hepatosplenomegaly: Code(s): R16.2 - Hepatomegaly with splenomegaly, not elsewhere classified Category: Medical (7) Polyp of gallbladder: Code(s): K82.4 - Cholesterolosis of gallbladder Category: Medical (8) Screening for prostate cancer: Code(s): Z12.5 - Encounter for screening for malignant neoplasm of prostate Category: Medical (9) Encounter for routine adult physical exam with abnormal findings: Code(s): Z00.01 - Encounter for general adult medical examination with abnormal findings Category: Medical Plan . Orders: Orders [facility]. Panel Fast 2 Months E78.5 - Hyperlipidemia, unspecified, Z00.00 - Encounter for general adult medical examination without abnormal findings US abdomen complete 6 Months R16.2 - Hepatomegaly with splenomegaly, not elsewhere classified, R74.8 - Abnormal levels of other serum enzymes MR abdomen wo/w con 5 Months K82.4 - Cholesterolosis of gallbladder, R16.2 - Hepatomegaly with splenomegaly, not elsewhere classified, Z80.0 - Family history of malignant neoplasm of digestive organs Carbohydrate Antigen 19-9 Today Z80.0 - Family history of malignant neoplasm of digestive organs Mitochondrial Antibody Today Z80.0 - Family history of malignant neoplasm of digestive organs Prostate Specific Antigen Scr Today Z12.5 - Encounter for screening for malignant neoplasm of prostate Lipid Panel 2 Months E78.5 - Hyperlipidemia, unspecified, Z00.00 - Encounter for general adult medical examination without abnormal findings Smooth Muscle Antibody Today Z80.0 - Family history of malignant neoplasm of digestive organs Referrals Genetics Referral Z80.0 - Family history of malignant neoplasm of digestive organs Medications: Discontinued atorvastatin (Lipitor) Discontinued Reason: Doctor's Order 20 mg PO BEDTIME 90 tabs 0RF
--- OUTSIDE RECORDS SUMMARY | 2025-01-14 08:24 | XMS_ITS | Clinical Summary ---
Author Organization [address] [place] Address [address] [place] [phone] Phone Care Team Providers Care Marketing Research Intern Name Role Phone Jb Cooley NP Primary [...] Care Team Description 11/19/2024 Telephone Gastroenterology - [address] [place] [phone] Ginette Dsouza MD from Last 3 [...] Davis- homero bx ESOPHAGOGASTRODUODENOSCOPY 05/11/2017 Dr. Davis -hmoero esophgaus and stomach bx Medical History Medical [...] patient's age to complete this topic Insurance [facility] Member Subscriber Plan / Payer (Ef fective 2023-Present) Name:HERBERTH ROME Relation to Subscriber:Self Name:BilliezakiaHerberth dunaway Payer ID:[id number] (NAIC) Type:Not on file Address: [facility] [address] [place] [phone] Care Teams Marketing Research Intern Relationship Specialty Start Date End Date Jb Cooley NP [address] [facility] DONNA Simons PCP - General Family Medicine 01/25/24
== END 2025-01-14 09:51 | disposition home or self-care (01) ==
LOC: HO.HMCC 08:17
PROVIDERS: PCP Nurse Practitioner Family; Visit Provider Nurse Practitioner Family
DX: Z00.00 Encounter for general adult medical examination without abnormal findings (principal); E78.5 Hyperlipidemia, unspecified; Z80.0 Family history of malignant neoplasm of digestive organs; R74.8 Abnormal levels of other serum enzymes; R16.2 Hepatomegaly with splenomegaly, not elsewhere classified; K82.4 Cholesterolosis of gallbladder; Z12.5 Encounter for screening for malignant neoplasm of prostate